=== PATIENT | male | born 1985 | race Asian ===

== ENCOUNTER 2022-11-19 20:37 | Inpatient (IN) | payer BC ==
[2022-11-19] MEDS ORDERED: Ketorolac Tromethamine 30 MG/ML VIAL ONE (21:08)
[2022-11-19 21:17] LABS: #Basophils 0.1 10x3/uL (0.0-0.2); #Monocytes 1.4 10x3/uL (0.0-1.1); #Neutrophils 13.9 10x3/uL (1.5-8.4); %Basophils 0.4 % (0.0-2.0); %Eosinophils 0.2 % (0.0-6.0); %Lymphocytes 10.7 % (18.0-47.0); %Monocytes 7.8 % (0.0-10.0); %Neutrophils 80.3 % (40.0-75.0); Hemoglobin 15.8 g/dL (13.5-17.5); Mean Corpuscular HGB CONC 33.9 g/dL (32.0-36.0); Mean Corpuscular Hemoglobin 30.9 pg (27.0-33.0); Mean Platelet Volume 9.6 fl (7.4-10.4); Platelet Count 275 10x3/uL (150-450); RBC Distribution Width 11.8 % (11.5-14.5); Red Blood Cell (RBC) Count 5.12 10x6/uL (4.32-5.72); White Blood Cell (WBC) Count 17.3 10x3/uL (3.5-10.5)
[2022-11-19 21:27] LABS: ALT (SGPT) 70 U/L (8-55); AST (SGOT) 26 U/L (5-34); Albumin 4.3 g/dL (3.5-5.0); Alkaline Phosphatase 61 U/L (40-110); Anion Gap 14 mmol/L (10-20); BUN (Urea Nitrogen) 13 mg/dL (8.9-20.6); Calc. Creatinine Clearance 0 mL/min (70-130); Calcium 9.3 mg/dL (7.8-10.44); Carbon Dioxide 21 mmol/L (22-29); Chloride 102 mmol/L (98-107); Estimated GFR 112; Globulin 3.7 g/dL (2.4-3.5); Glucose 112 mg/dL (70-105); Lipase 19 U/L (8-78); Sodium 133 mmol/L (136-145)
[2022-11-19] MEDS ORDERED: Ondansetron PF 4 MG/2 ML Vial ONE (21:34)
[2022-11-19] MEDS ORDERED: metroNIDAZOLE 500 MG/100 ML BAG ONE (21:44)
[2022-11-19] MEDS ORDERED: cefTRIAXone (ROCEPHIN) 2 GM VIAL ONE (21:44)
[2022-11-19] MEDS ORDERED: Zolpidem Tartrate 5 MG TAB PO PRN (22:10)
[2022-11-19] MEDS ORDERED: Acetaminophen 325 MG TAB PO PRN (22:10)
[2022-11-19] MEDS ORDERED: HYDROcodone/Acetaminophen 5/325 mg Tablet PO PRN (22:10)
[2022-11-19] MEDS ORDERED: Calcium Carbonate 500 MG ChewTAB PO PRN (22:10)
[2022-11-19] MEDS ORDERED: Ondansetron PF 4 MG/2 ML Vial IVP PRN (22:10)
[2022-11-19 23:21] VITALS: BMI 37.3
[2022-11-19] MEDS ORDERED: Famotidine/PF 20 mg/2ml Vial SLOW IVP SCH (23:30)
[2022-11-19] MEDS: Lactated Ringer's 1,000 ML IV SCH (23:46)
[2022-11-20 00:44] LABS: Bilirubin Neg (Negative); Blood, Urine Negative (Negative); Clarity Clear (Clear); Glucose, Urine (Dipstick) Normal (Negative); Ketone, Urine Negative (Negative); Leukocyte Negative (Negative); Nitrite Negative (Negative); Protein, Urine (Dipstick) 15 mg/dl (Neg-Trace); Specific Gravity, Urine 1.015 (1.005-1.030); Urobilinogen Normal mg/dL (Less than 2)
[2022-11-20 00:51] LABS: Bacteria/HPF None Seen HPF (None Seen); RBC/HPF None Seen HPF (0-3); Squamous Epithelial 0-3 HPF (0-3); WBC/HPF None Seen HPF (0-3)
[2022-11-20] MEDS ORDERED: Ketorolac Tromethamine 30 MG/ML VIAL IVP PRN (04:00)
[2022-11-20] MEDS ORDERED: metroNIDAZOLE 500 MG in Premix Bag 1 BAG IVPB SCH (06:00)
[2022-11-20 06:27] LABS: #Basophils 0.1 10x3/uL (0.0-0.2); #Eosinphils 0.1 10x3/uL (0.0-0.5); #Monocytes 1.2 10x3/uL (0.0-1.1); #Neutrophils 12.6 10x3/uL (1.5-8.4); %Basophils 0.3 % (0.0-2.0); %Eosinophils 0.6 % (0.0-6.0); %Lymphocytes 13.7 % (18.0-47.0); %Monocytes 7.5 % (0.0-10.0); %Neutrophils 77.3 % (40.0-75.0); Hemoglobin 13.9 g/dL (13.5-17.5); Mean Corpuscular HGB CONC 33.6 g/dL (32.0-36.0); Mean Corpuscular Volume 92.2 fl (81.2-95.1); Platelet Count 243 10x3/uL (150-450); RBC Distribution Width 11.8 % (11.5-14.5); Red Blood Cell (RBC) Count 4.49 10x6/uL (4.32-5.72); White Blood Cell (WBC) Count 16.2 10x3/uL (3.5-10.5)
[2022-11-20 06:34] LABS: ALT (SGPT) 51 U/L (8-55); AST (SGOT) 19 U/L (5-34); Albumin 3.6 g/dL (3.5-5.0); Alkaline Phosphatase 48 U/L (40-110); Anion Gap 11 mmol/L (10-20); BUN (Urea Nitrogen) 10 mg/dL (8.9-20.6); Bilirubin, Total 1.2 mg/dL (0.2-1.2); Calc. Creatinine Clearance 179 mL/min (70-130); Calcium 8.3 mg/dL (7.8-10.44); Carbon Dioxide 24 mmol/L (22-29); Chloride 105 mmol/L (98-107); Estimated GFR 111; Globulin 3.1 g/dL (2.4-3.5); Glucose 108 mg/dL (70-105); Protein, Total 6.7 g/dL (6.0-8.3); Sodium 136 mmol/L (136-145)
[2022-11-20] MEDS ORDERED: Famotidine/PF 20 mg/2ml Vial SLOW IVP SCH (09:00)
[2022-11-20] MEDS: Lactated Ringer's 1,000 ML IV SCH (09:29)
[2022-11-20 12:49] VITALS: BP 136/89; TEMP 98.7
[2022-11-20] MEDS ORDERED: cefTRIAXone\\ROCEPHIN 2 GM in Sodium Chloride 0.9% 100 ML IVPB SCH (22:00)
== END 2022-11-20 15:31 | disposition home or self-care (01) | DRG 872 ==
LOC: CSHERS 20:37 → CSHTELE 23:16 → OBSVTOIN 23:16 → INTOOBSV 23:16
PROVIDERS: ADMIT Internal Medicine; ATTEND Student in an Organized Health Care Education/Training Program
DX: A41.9 Sepsis, unspecified organism (principal); K57.92 Diverticulitis of intestine, part unspecified, without perforation or abscess without bleeding; K38.8 Other specified diseases of appendix; K76.0 Fatty (change of) liver, not elsewhere classified; E66.9 Obesity, unspecified; Z68.37 Body mass index [BMI] 37.0-37.9, adult
CPT/HCPCS: 36415; 74177; 80053; 81001; 83605; 83690; 83735; 84443; 85025; 87040; 94760; 96374; 96375; J0696; J1650; J1885; J2405; J7120; S0028